=== PATIENT | female | born 1970 | race Caucasian/White ===

== ENCOUNTER 2024-06-28 13:59 | Emergency (ER) | payer OTHER, BC ==
[~2024-06-28] VITALS: Ht 154.9 cm; Wt 53.5 kg
[2024-06-28] MEDS ORDERED: LIDO700A20 TOP (16:24)
[2024-06-28] MEDS ORDERED: Ketorolac Tromethamine 15mg Vial IM ONE (16:25)
== END 2024-06-28 16:40 | disposition home or self-care (01) ==
LOC: ER 13:59
DX: M25.512 Pain in left shoulder (principal); M25.532 Pain in left wrist; M25.531 Pain in right wrist; M25.522 Pain in left elbow; Z79.891 Long term (current) use of opiate analgesic; W01.0XXA Fall on same level from slipping, tripping and stumbling without subsequent striking against object, initial encounter
CPT/HCPCS: 73030; 73080; 73110; 96372; 99283-25; J1885